=== PATIENT | female | born 1990 | race Caucasian/White ===

== ENCOUNTER 2017-01-20 20:38 | Emergency (ER) | payer SELFPAY ==
[2017-01-20 22:24] LABS: BASOPHILS 0.2 % (0-2); EOSINOPHILS 0.1 % (0-7); HEMATOCRIT 43.9 % (36.0-48.0); HEMOGLOBIN 15.9 g/dL (12-16); IMMATURE GRANULOCYTES 0.1 % (0-5); MCH 31.7 pg (26.0-34.0); MCHC 36.2 g/dL (31.0-37.0); MCV 87.6 fL (80.0-100.0); MEAN PLATELET VOLUME 10.7 fL (7.4-10.4); MONOCYTES 11.1 % (2-11); NEUTROPHILS 74.5 % (40-80); PLATELET COUNT 186 10x3/uL (130-400); RBC 5.01 10x6/uL (4.00-5.40); WBC 9.9 10x3/uL (4.8-10.8)
[2017-01-20 22:38] LABS: ALBUMIN 4.9 g/dL (3.4-5.0); ALKALINE PHOSPHATASE 55 U/L (46-116); ALT (SGPT) 18 U/L (10-68); CALC OSMOLALITY 281 mosm/kg (275-300); CALCIUM 9.2 mg/dL (8.5-10.1); CARBON DIOXIDE 22.4 mmol/L (21.0-32.0); CHLORIDE - SERUM 102 mmol/L (98-107); CREATININE - SERUM 0.9 mg/dL (0.6-1.3); GLUCOSE 94 mg/dL (74-106); POTASSIUM - SERUM 3.2 mmol/L (3.5-5.1); PROTEIN - SERUM 8.3 g/dL (6.4-8.2); SODIUM 141 mmol/L (136-145); UREA NITROGEN 14 mg/dL (7-18); eGFR NON AFRICAN AMERICAN 80 mL/min (90-120)
== END 2017-01-21 01:50 | disposition home or self-care (01) ==
LOC: D.ER 20:38
PROVIDERS: Emergency Medicine
DX: K52.9 Noninfective gastroenteritis and colitis, unspecified (principal)

== ENCOUNTER → 2018-09-27 07:38 | Outpatient (CLI) | payer MEDICAID | END | disposition home or self-care (01) | LOC: D.CT 09-23 08:00 | PROVIDERS: ATTEND Obstetrics & Gynecology | DX: R59.0 Localized enlarged lymph nodes (principal) ==

== ENCOUNTER → 2018-10-27 13:50 | Outpatient (CLI) | payer MEDICAID | END | disposition home or self-care (01) | LOC: D.US 10-26 08:00 | PROVIDERS: ATTEND Nurse Practitioner | DX: N63.14 Unspecified lump in the right breast, lower inner quadrant (principal) ==

== ENCOUNTER → 2019-04-28 07:28 | Outpatient (CLI) | payer MEDICAID | END | disposition home or self-care (01) | LOC: D.US 07:28 | PROVIDERS: ATTEND Nurse Practitioner | DX: N63.14 Unspecified lump in the right breast, lower inner quadrant (principal) ==

== ENCOUNTER 2019-06-18 03:33 | Emergency (ER) | payer MEDICAID ==
[~2019-06-18] VITALS: Ht 157.5 cm; Wt 50.9 kg
[2019-06-18 03:37] VITALS: Ht 157.5 cm; Wt 50.9 kg
[2019-06-18] MEDS ORDERED: HYDROCODON-ACE1 EAC7 PO (03:38)
[2019-06-18] MEDS ORDERED: PERCOCET 5-3251 TAB PO (03:51)
[2019-06-18] MEDS ORDERED: AMOXICILLIN500 M1 PO (03:51)
[2019-06-18 04:12] VITALS: BP 118/65
== END 2019-06-18 04:11 | disposition home or self-care (01) ==
LOC: D.ER 03:33
DX: K02.9 Dental caries, unspecified (principal); K08.89 Other specified disorders of teeth and supporting structures; K04.7 Periapical abscess without sinus

== ENCOUNTER → 2019-08-10 07:11 | Outpatient (CLI) | payer MEDICAID ==
[2019-06-18 03:37] VITALS: BMI 20.5
[~2019-08-10 07:11] MED LIST: AMOXICILLIN500 M1 PO; HYDROCODON-ACE1 EAC7 PO; PERCOCET 5-3251 TAB PO
== END | disposition home or self-care (01) ==
LOC: D.US 07:11
PROVIDERS: ATTEND Nurse Practitioner
DX: N63.11 Unspecified lump in the right breast, upper outer quadrant (principal)

== ENCOUNTER → 2020-01-19 15:01 | Outpatient (CLI) | payer MEDICAID ==
[2019-06-18 03:37] VITALS: BMI 20.5
== END | disposition home or self-care (01) ==
LOC: D.US 10:30
PROVIDERS: ATTEND Nurse Practitioner Family
DX: N63.24 Unspecified lump in the left breast, lower inner quadrant (principal)

== ENCOUNTER 2020-09-07 06:35 | Emergency (ER) | payer BC ==
[~2020-09-07] VITALS: Ht 157.5 cm; Wt 50.0 kg
[2020-09-07 06:44] VITALS: BP 97/60; Ht 157.5 cm; Wt 50.0 kg
[2020-09-07 07:33] LABS: HCG URINE NEGATIVE (NEGATIVE)
[2020-09-07 07:35] LABS: BASOPHILS 0.4 % (0-2); EOSINOPHILS 0.7 % (0-7); HEMOGLOBIN 13.5 g/dL (12-16); IMMATURE GRANULOCYTES 0.1 % (0-5); LYMPHOCYTE ABS# 0.39 10x3/uL (1.18-3.74); LYMPHOCYTES 5.2 % (15-50); MCHC 34.6 g/dL (31.0-37.0); MCV 89.7 fL (80.0-100.0); MEAN PLATELET VOLUME 10.5 fL (7.4-10.4); MONOCYTES 9.5 % (2-11); NEUTROPHIL ABS# 6.37 10x3/uL (1.56-6.13); NEUTROPHILS 84.1 % (40-80); PLATELET COUNT 182 10x3/uL (130-400); RBC 4.35 10x6/uL (4.00-5.40); RDW 11.9 % (11.5-14.5); WBC 7.6 10x3/uL (4.8-10.8)
[2020-09-07 07:38] LABS: BILIRUBIN NEGATIVE (NEGATIVE); KETONE 2+ mg/dL (NEGATIVE); NITRITE NEGATIVE (NEGATIVE); UROBILINOGEN NORMAL mg/dL (< 2)
[2020-09-07 07:43] LABS: CHLORIDE - SERUM 106 mmol/L (98-107); GLUCOSE 102 mg/dL (74-106)
[2020-09-07 07:44] LABS: CALC OSMOLALITY 280 mosm/kg (275-300); CALCIUM 8.9 mg/dL (8.5-10.1); CARBON DIOXIDE 22.7 mmol/L (21.0-32.0); CREATININE - SERUM 0.9 mg/dL (0.6-1.3); POTASSIUM - SERUM 3.2 mmol/L (3.5-5.1); SODIUM 141 mmol/L (136-145); UREA NITROGEN 13 mg/dL (7-18); eGFR NON AFRICAN AMERICAN 78 mL/min (90-120)
[2020-09-07 08:10] LABS: ALKALINE PHOSPHATASE 54 U/L (30-120); ALT (SGPT) 21 U/L (10-68); AMYLASE - SERUM 39 U/L (25-115); BILIRUBIN - TOTAL 1.09 mg/dL (0.2-1.3); LIPASE 49 U/L (73-393); PROTEIN - SERUM 6.7 g/dL (6.4-8.2)
[2020-09-07] MEDS ORDERED: ZOFRAN ODT4 MG/UDTAB PO (08:16)
[2020-09-07] MEDS ORDERED: IBUPROFEN800 MG PO (08:16)
[2020-09-07] MEDS ORDERED: ACETAMINOPHEN500 M1 PO (08:16)
== END 2020-09-07 08:29 | disposition home or self-care (01) ==
LOC: D.ER 06:35
PROVIDERS: Family Medicine
DX: R11.2 Nausea with vomiting, unspecified (principal); R53.81 Other malaise; R53.83 Other fatigue; E87.6 Hypokalemia; T50.B95A Adverse effect of other viral vaccines, initial encounter